=== PATIENT | female | born 1950 | race Caucasian/White ===

== ENCOUNTER 2025-07-27 13:21 | Inpatient (IN) ==
[2025-07-27] MEDS: fentaNYL 100 MCG/2 ML VIAL IV ONE (14:41)
[2025-07-27 16:14] LABS: Basophils # (Auto) 0.01 K/mcL (0.00-0.30); Basophils % (Auto) 0.1 % (0.0-2.0); Eosinophils # (Auto) 0 K/mcL (0.00-0.70); Eosinophils % (Auto) 0 % (0.0-7.0); Hematocrit 32.2 % (34.1-44.9); Hemoglobin 10.4 g/dL (11.2-15.7); Lymphocytes # (Auto) 0.31 K/mcL (1.50-4.80); Lymphocytes % (Auto) 2.1 % (15.5-49.0); Mean Corpuscular HGB Conc 32.3 g/dL (31.0-36.0); Monocytes # (Auto) 0.68 K/mcL (0.10-0.90); Monocytes % (Auto) 4.6 % (1.0-12.0); Neutrophils % (Auto) 93.1 % (38.0-78.0); Platelet Count 291 K/mcL (140-440); RBC 3.35 M/mcL (3.59-5.38); WBC 14.7 K/mcL (4.5-11.0)
[2025-07-27 16:20] LABS: INR 1.0 (0.9-1.1); Prothrombin Time 14.3 sec (11.9-14.5)
[2025-07-27 16:59] LABS: ALT/SGPT 10 U/L (<40); AST/SGOT 23 U/L (<32); Albumin 4.0 gm/dL (3.2-5.2); Albumin/Globulin Ratio 1.1 (1.0-2.3); Alkaline Phosphatase 82 U/L (39-117); Anion Gap 11.0 (8.0-16.0); Bilirubin,Total 0.7 mg/dL (0.1-1.0); Blood Urea Nitrogen 36 mg/dL (8-23); Calcium 10.3 mg/dL (8.6-10.4); Carbon Dioxide 24 mmol/L (22-30); Chloride 106 mmol/L (96-108); Globulin 3.8 gm/dL (2.2-3.7); Glucose 117 mg/dL (70-105); Potassium 3.8 mmol/L (3.3-5.1); Sodium 141 mmol/L (133-145)
[2025-07-27] MEDS: 0.9 % SODIUM CHLORIDE 1,000 ML IV SCH (17:30)
[2025-07-27] MEDS ORDERED: ONDANSETRON 4 MG/2 ML VIAL IV PRN (18:53)
[2025-07-27] MEDS: 0.9 % SODIUM CHLORIDE 10 ML SYRINGE IV SCH (21:41)
[2025-07-28] MEDS ORDERED: LABETALOL HCL 20 MG/4 ML VIAL IV PRN (07:18)
[2025-07-28] MEDS: LEVOTHYROXINE 75 MCG TABLET PO SCH (08:13)
[2025-07-28] MEDS: LOSARTAN 50 MG TABLET PO SCH (08:13)
[2025-07-28] MEDS: ATORVASTATIN 20 MG TABLET PO SCH (08:13)
[2025-07-28 08:39] LABS: Bilirubin,Urine Negative (Negative); Color,Urine YELLOW; Glucose,Urine (UA) NEGATIVE (Negative); Ketones,Urine TRACE mg/dL (Negative); Leukocyte Esterase,Urine NEGATIVE /uL (Negative); Mucus,Urine Many /hpf; PH,Urine 6.0 (5.0-9.0); Protein,Urine 100 mg/dL (Negative); Specific Gravity,Urine >= 1.030 (1.000-1.035); Urine Amorphous Crystals Many /hpf; Urobilinogen,Urine 0.2 mg/dL
[2025-07-28 09:09] LABS: ALT/SGPT 8 U/L (<40); AST/SGOT 21 U/L (<32); Albumin 3.3 gm/dL (3.2-5.2); Albumin/Globulin Ratio 1.1 (1.0-2.3); Alkaline Phosphatase 98 U/L (39-117); Anion Gap 10.0 (8.0-16.0); Bilirubin,Direct 0.4 mg/dL (<0.3); Bilirubin,Total 0.8 mg/dL (0.1-1.0); Blood Urea Nitrogen 37 mg/dL (8-23); Calcium 9.7 mg/dL (8.6-10.4); Carbon Dioxide 21 mmol/L (22-30); Chloride 109 mmol/L (96-108); Globulin 3.1 gm/dL (2.2-3.7); Glucose 73 mg/dL (70-105); Phosphorous 2.6 mg/dL (2.5-4.5); Potassium 3.8 mmol/L (3.3-5.1); Sodium 140 mmol/L (133-145); Triglycerides 83 mg/dL (<150); Uric Acid 3.9 mg/dL (2.5-8.0)
[2025-07-28] MEDS ORDERED: fentaNYL 100 MCG/2 ML VIAL ONE (10:09)
[2025-07-28] MEDS ORDERED: PROPOFOL 200 MG/20 ML VIAL IV ONE (10:10)
[2025-07-28] MEDS ORDERED: LIDOCAINE 2% PF 5 ML VIAL ONE (10:11)
[2025-07-28] MEDS ORDERED: TRANEXAMIC ACID 1,000 MG/10 ML VIAL ONE (10:11)
[2025-07-28] MEDS ORDERED: ONDANSETRON 4 MG/2 ML VIAL ONE (10:11)
[2025-07-28] MEDS ORDERED: FAMOTIDINE/PF 20 MG/2 ML VIAL IV ONE (10:11)
[2025-07-28] MEDS ORDERED: DEXAMETHASONE 10 MG/ML VIAL ONE (10:11)
[2025-07-28] MEDS ORDERED: GLYCOPYRROLATE 0.2 MG/ML VIAL IV ONE (10:11)
[2025-07-28] MEDS ORDERED: MAGNESIUM SULFATE 2 GM/50 ML BAG IV ONE (10:11)
[2025-07-28 11:22] LABS: Basophils # (Auto) 0.06 K/mcL (0.00-0.30); Basophils % (Auto) 0.6 % (0.0-2.0); Eosinophils # (Auto) 0.37 K/mcL (0.00-0.70); Eosinophils % (Auto) 3.6 % (0.0-7.0); Hematocrit 26.7 % (34.1-44.9); Hemoglobin 8.8 g/dL (11.2-15.7); Lymphocytes # (Auto) 0.76 K/mcL (1.50-4.80); Lymphocytes % (Auto) 7.3 % (15.5-49.0); Mean Corpuscular HGB Conc 33.0 g/dL (31.0-36.0); Monocytes # (Auto) 0.61 K/mcL (0.10-0.90); Monocytes % (Auto) 5.9 % (1.0-12.0); Neutrophils % (Auto) 82.0 % (38.0-78.0); Platelet Count 246 K/mcL (140-440); RBC 2.79 M/mcL (3.59-5.38); WBC 10.4 K/mcL (4.5-11.0)
[2025-07-28] MEDS: ceFAZolin 2 GM in DEXTROSE 5% IN WATER 50 ML IV SCH (11:55)
[2025-07-28] MEDS ORDERED: ePHEDrine 50 MG/5 ML SYRINGE (ANEST) IV ONE (12:02)
[2025-07-28] MEDS ORDERED: PHENYLephrine 1 MG/10 ML SYRINGE (ANEST) ONE (12:02)
[2025-07-28] MEDS ORDERED: ONDANSETRON 4 MG/2 ML VIAL IV PRN (12:39)
[2025-07-28] MEDS ORDERED: HYDROmorphone 0.5 MG/0.5 ML SYRINGE IV PRN (12:39)
[2025-07-28] MEDS ORDERED: NALOXONE HCL 0.4 MG/ML VIAL IV PRN (12:39)
[2025-07-28] MEDS ORDERED: IPRATROPIUM/ALBUTEROL 3 ML AMPUL.NEB NEB PRN (12:39)
[2025-07-28] MEDS ORDERED: fentaNYL 100 MCG/2 ML VIAL IV PRN (12:39)
[2025-07-28] MEDS ORDERED: LACTATED RINGERS 250 ML IV PRN (12:39)
[2025-07-28] MEDS ORDERED: BENZOCAINE/MENTHOL 1 LOZENGE PO PRN (12:39)
[2025-07-28] MEDS ORDERED: ceFAZolin 2 GM in DEXTROSE 5% IN WATER 50 ML IV SCH (12:45)
[2025-07-28] MEDS: ACETAMINOPHEN 1,000 MG/100 ML BAG IV ONE (12:48)
[2025-07-28] MEDS: METHOCARBAMOL 1,000 MG/10 ML VIAL IV PRN (13:15)
[2025-07-28] MEDS: LACTATED RINGERS 1,000 ML IV SCH (14:41)
[2025-07-28] MEDS: ASPIRIN 325 MG ENTERIC COATED TABLET PO SCH (21:13)
[2025-07-29] MEDS ORDERED: HYDROmorphone 0.5 MG/0.5 ML SYRINGE IV PRN (07:01)
[2025-07-29] MEDS: ACETAMINOPHEN 500 MG TABLET PO SCH (07:38)
[2025-07-29] MEDS: LEVOTHYROXINE 100 MCG TABLET PO SCH ×2 (07:38→09:14)
[2025-07-29] MEDS: ATORVASTATIN 20 MG TABLET PO SCH (08:14)
[2025-07-29] MEDS ORDERED: ALBUTEROL SULFATE 2.5 MG/3 ML NEBULIZER NEB PRN (08:59)
[2025-07-29] MEDS: ATORVASTATIN 40 MG TABLET PO SCH (22:05)
[2025-07-29] MEDS: FLUTICASONE/SALMETEROL 250/50 INHALER #14 INH SCH (22:05)
[2025-07-30 06:37] LABS: Anion Gap 6.0 (8.0-16.0); Blood Urea Nitrogen 24 mg/dL (8-23); Calcium 9.0 mg/dL (8.6-10.4); Carbon Dioxide 24 mmol/L (22-30); Chloride 111 mmol/L (96-108); Glucose 81 mg/dL (70-105); Potassium 3.6 mmol/L (3.3-5.1); Sodium 141 mmol/L (133-145)
[2025-07-30 07:27] VITALS: TEMP 98.5; O2SAT 95
[2025-07-30] MEDS: CLOPIDOGREL 75 MG TABLET PO SCH (08:23)
[2025-07-30] MEDS: ASPIRIN 81 MG TAB.CHEW CHEWED SCH (08:23)
== END 2025-07-30 08:40 | DRG 481 ==
LOC: ED 13:21 → MEDSUR 17:43
PROVIDERS: ADMIT Orthopaedic Surgery; ATTEND Internal Medicine